=== PATIENT | male | born 1950 | race Caucasian/White ===

== ENCOUNTER 2018-06-05 10:10 | Emergency (ER) | payer OTHER ==
[~2018-06-05] VITALS: Ht 167.6 cm; Wt 61.7 kg
[2018-06-05 10:21] VITALS: BP 166/85
--- NOTE | 2018-06-05 10:31 | NUR ---
Patient ambulated to bed 4. RN evaluating patient at bedside.
--- NOTE | 2018-06-05 10:36 | NUR ---
PT. BIB DAUGHTER DUE TO L ARM MOLE PAIN. PT. STATES " WHEN I USED TO WORK I THINK SOMETHING WENT IN THERE 10 YEARS AGO BUT A YEAR AGO IT HAS BEEN BOTHERING ME AND IT HURTS WHEN I TOUCH IT". 5/10 SHARP PAIN WHEN TOUCHED AND NON RADIATING. DENIES ANY FEVER OR CHILLS. NO REDNESS OR SCALING NOTED TO L ELBOW MOLE. ER MD MADE AWARE. SAFETY PRECAUTIONS IMPLEMENTED. WILL CONTINUE TO MONITOR. DAUGHTER AT BEDSIDE.
--- NOTE | 2018-06-05 10:58 | NUR ---
Dr. Fernandez evaluating patient at bedside.
[2018-06-05 11:46] VITALS: BP 160/81
--- NOTE | 2018-06-05 11:46 | NUR ---
Patient discharged with v/s stable. Written and verbal after care instructions given and explained. Patient verbalized understanding. Ambulatory with steady gait. All questions addressed prior to discharge. Advised to follow up with PMD.
== END 2018-06-05 11:46 | disposition home or self-care (01) ==
LOC: MED 10:10
DX: L98.9 Disorder of the skin and subcutaneous tissue, unspecified (principal); M79.602 Pain in left arm; I10 Essential (primary) hypertension; E78.5 Hyperlipidemia, unspecified
CPT/HCPCS: 73080; 99283; Q0092